=== PATIENT | male | born 1995 ===

== ENCOUNTER 2022-10-16 10:58 | Outpatient (AMB) | payer OTHER, SELFPAY ==
--- NOTE | 2022-10-16 11:00 | A.OFFVIS_ITS ---
Intake Vital Signs 10/16/22 11:07 Height 5 ft 6 in Weight 122 lb BMI 19.7 BP 106/59 L Blood Pressure Location Rt brachial Position Sitting Pulse 56 Intake Visit Reasons: Pilonidal Cyst Intake Note: Patient referred for pilonidal cyst. First noticed @ 13 yrs of age. Had it drained in 2021. C/o pain when sitting on it. Cigar Tobacco Rehandler Required: No Accompanied by: Daughter Allergies No Known Allergies Allergy (Verified 10/16/22 11:05) HPI HPI Comments History of Present Illness Details Patient presents with a longstanding history of a pilonidal cyst of king cleft. He has had pain, discharge, and in the past has had this lanced at least 3 times. He wishes to have it excised. He has no other significant medical or surgical issues. Chart was reviewed and patient evaluated COUNT INCLUDES THE [facility] Medical History (Updated 10/16/22 @ 11:06 by JORDY Saunders) Open right ankle fracture Social History (Updated 10/16/22 @ 11:07 by JORDY Saunders) Alcohol intake: never Tobacco use type: Cigarette Cigarettes Per Day: 3 Physical Exam Vital Signs: Last Vital Signs Pulse 56 10/16/22 11:07 BP 106/59 L 10/16/22 11:07 BMI result Body Mass Index 19.7 Chest Other: Chest breath sounds bilaterally, HS 1 in 2 GI Other: Abdomen soft, benign Back/Spine/Pelvis Other: Pilonidal cyst of cleft area. Scarring from prior incision and drainage. Assessment & Plan Assessment & Plan (1) Pilonidal cyst of king cleft: Code(s): L05.91 - Pilonidal cyst without abscess Plan Risks, benefits, alternatives of pilonidal cyst excision were reviewed with the patient and included but not limited to bleeding, infection, recurrence, numbness, pain, scarring, seroma formation, or wound dehiscence. I specifically discussed that the patient must be sedentary post procedure for few weeks time or he may develop a wound dehiscence. All questions were answered. Patient wished to proceed. Arrangements were made for this. Coding Level of Care Code New Pt Level 4 (72607) Diagnoses Pilonidal cyst of king cleft L05.91
[2022-10-16 11:07] VITALS: BP 106/59; PULSE 56; BMI 19.7
== END 2022-10-16 11:32 | disposition home or self-care (01) ==
PROVIDERS: PCP Internal Medicine; Referring Provider Internal Medicine; Visit Provider Surgery
DX: L05.91 Pilonidal cyst without abscess (principal)
CPT/HCPCS: 99204

== ENCOUNTER → 2022-10-16 10:58 | Outpatient (BNVA) | payer OTHER, SELFPAY | PROVIDERS: PCP Internal Medicine; Referring Provider Internal Medicine; Visit Provider Surgery | DX: L05.91 Pilonidal cyst without abscess (principal) | CPT/HCPCS: 99202 ==

== ENCOUNTER 2022-11-15 09:53 | Day surgery (SDC) | payer OTHER, SELFPAY ==
[2022-11-12 16:13] VITALS: BMI 19.7
--- NOTE | 2022-11-14 09:29 | MHC.SHP ---
Pre-Procedural Eval Section A Date of Service: 11/14/22 The patient is an INPATIENT: No Changes since office visit: No Cold of Flu in the past 2 weeks, No New Medical Problems, No Changes in Medication and No Patient answered all questions The History & Physical has been completed within 30 days and I have reviewed it.: Yes Section B Chief Complaint: Pilonidal cyst without abscess Allergies: Allergies Allergy/AdvReac Type Severity Reaction Status Date / Time No Known Allergies Allergy Verified 10/16/22 11:05 Plan I have reviewed the history and physical and performed a pertinent physical examination on my patient. No changes have occurred unless specified. Time Spent With Patient Time: Total time managing care of this patient today ____ minutes.
[2022-11-15] VITALS (11 sets, daily range): BP systolic 100–120; BP diastolic 38–84; PULSE 38–56; RESP 14–18; TEMP 36.2–36.6; O2SAT 98–100
[2022-11-15] MEDS: Lactated Ringers 1,000 ML 100 ML IVCONT (10:12)
--- NOTE | 2022-11-15 10:55 | HO.ANESPROP2 ---
Documented by User: Teresa Diaz NP 11/14/22 08:56 HPI - Anesthesia Eval Consult details Narrative: 27yo M for Excision Pilonidal Cyst of Cleft,prone position PMFSH Active Problems Active Problems: All Active Problems (Updated 10/16/22 @ 11:34 by Javy Chilel MD) Pilonidal cyst of king cleft (Acute) Past Medical History Medical History Open right ankle fracture Surgical History Surgical History No pertinent past surgical history Social History Social History Alcohol intake: never Patient Tobacco Use Status: Current everyday Tobacco user Tobacco use type: Cigarette Cigarettes Per Day: 3 Smoked in Last 30 Days: Yes Patient Interested in Nicotine Replacement: No Substance Use Frequency: Occasionally Are you DNR?: No Advance Directives: No Advance Directives Information Provided: Yes Nutrition Risks: No Nutritional Risk Meds Allergies Allergy/AdvReac Type Severity Reaction Status Date / Time No Known Allergies Allergy Verified 11/15/22 10:25 Home Medications Medication Instructions Recorded Confirmed Last Taken Type No Known Home Meds 10/16/22 11/15/22 Unknown History Exam Exam Date and Time: November 14, 2022 0856 Height,Weight and Vital Signs: Height 5 ft 6 in Weight 55.338 kg Assessment and Plan Assessment Anesthesia Assessment: Chart Reviewed Documented by User: Blossom Swanson DO 11/15/22 10:58 PMFSH Past Medical History Medical History Open right ankle fracture Functional capacity: independent ambulation Family History Family history of problems with anesthesia: No Surgical History Surgical History No pertinent past surgical history History of Problems with Anesthesia: No Social History Social History Alcohol intake: never Patient Tobacco Use Status: Current everyday Tobacco user Tobacco use type: Cigarette Cigarettes Per Day: 3 Smoked in Last 30 Days: Yes Patient Interested in Nicotine Replacement: No Substance Use Frequency: Occasionally Are you DNR?: No Advance Directives: No Advance Directives Information Provided: Yes Nutrition Risks: No Nutritional Risk Meds Allergies Allergy/AdvReac Type Severity Reaction Status Date / Time No Known Allergies Allergy Verified 11/15/22 10:25 Home Medications Medication Instructions Recorded Confirmed Last Taken Type No Known Home Meds 10/16/22 11/15/22 Unknown History Exam Exam Date and Time: November 15, 2022 1057 Height,Weight and Vital Signs: Height 5 ft 6 in Weight 55.338 kg Vital Signs Temperature 97.9 F 11/15/22 10:25 Pulse Rate 51 11/15/22 10:25 Respiratory Rate 18 11/15/22 10:25 Blood Pressure 113/59 L 11/15/22 10:25 Pulse Oximetry 99 11/15/22 10:25 Oxygen Delivery Method Room Air 11/15/22 10:25 Temperature 97.9 F 11/15/22 10:25 Pulse Rate 51 11/15/22 10:25 Respiratory Rate 18 11/15/22 10:25 Blood Pressure 113/59 L 11/15/22 10:25 Pulse Oximetry 99 11/15/22 10:25 Oxygen Delivery Method Room Air 11/15/22 10:25 Airway Mallampati Class: I TM Dist: >3cm Neck ROM: Full Loose/Missing/Broken Teeth: No Heart: S1S2 Lungs: CTAB Assessment and Plan Assessment Anesthesia Assessment: Anesthesia Plan Discussed and Chart Reviewed Final Anesthetic Review Family History of Problems with Anesthesia: No History of Problems with Anesthesia: No NPO: Yes ASA Class: II Final Preanesthetic Review: No Changes in Pt Med Stat, Meds/Allgs Chart Reviewed, Consent Obtained/Reviewed and Anes Risks/Benef Reviewed Patient Risk: Low Procedure Risk: Low Anesthetic Plan Anesthetic Plan: MAC: and Agree w/ Assess. and Plan Disposition: Standard PACU
--- NOTE | 2022-11-15 12:01 | P.OP_ITS ---
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 Buttock area and cleft area were prepped and draped in usual sterile fashion. Wound was infiltrated with 0.5% Marcaine/1% lidocaine and a longitudinal by elliptical incision extending to the right of midline were the cyst extended, was carried down through skin, subcutaneous tissue, down to presacral fascia, and undermined, excised and sent to pathology using Bovie. Wound was irrigated, secured hemostasis, and closed in the following manner; subcutaneous to wound floor to contralateral subcutaneous interrupted 0 Vicryl were initially placed. Interrupted inverted dermal 3-0 Vicryl sutures followed by vertical mattress 2-0 Prolene were then placed. Sterile dressing was applied. Sponge, needle, and instrument counts reported correct. Patient tolerated procedure well and emerged anesthesia in stable condition. EBL minimal
--- NOTE | 2022-11-15 14:31 | PC.NURSE ---
Cleared by anesthesia for discharge
== END 2022-11-15 14:45 | disposition home or self-care (01) ==
PROVIDERS: PCP Internal Medicine; Visit Provider Surgery
PROC: (CPT 11771; principal; 2022-11-15 11:20)
DX: L05.91 Pilonidal cyst without abscess (principal); F17.210 Nicotine dependence, cigarettes, uncomplicated
CPT/HCPCS: 11771; 88304; J0131; J0690; J1885; J2250; J3010

== ENCOUNTER → 2022-11-15 09:53 | Outpatient (BNV) | payer OTHER, SELFPAY | PROVIDERS: PCP Internal Medicine; Visit Provider Surgery | DX: L05.91 Pilonidal cyst without abscess (principal) | CPT/HCPCS: 11770 ==

== ENCOUNTER 2022-11-25 09:27 | Outpatient (AMB) | payer OTHER, SELFPAY ==
[2022-11-25 09:33] VITALS: BP 110/61; PULSE 64
--- NOTE | 2022-11-25 09:33 | MHC.OFFVIS ---
Intake Vital Signs 11/25/22 09:33 Weight 119 lb BP 110/61 Blood Pressure Location Rt brachial Position Sitting Pulse 64 Intake Visit Reasons: S/P pilonidal cyst Intake Note: Patient here s/p pilonidal cyst excision. Reports healing well and normal BM. Denies bleeding. Patient still taking rx pain meds as needed. Forest Fire Prevention Manager Required: No Accompanied by: Self / Same As Patient Allergies No Known Allergies Allergy (Verified 11/25/22 09:34) HPI HPI Comments History of Present Illness Details Patient presents for follow-up. Aside from mild incisional discomfort is doing well. He has time diet having normal bowel habits. He is increasing his activity level slowly. He has no wound issues. Pathology was reviewed. [facility] Medical History Open right ankle fracture Surgical History No pertinent past surgical history Social History Alcohol intake: never Patient Tobacco Use Status: Current everyday Tobacco user Tobacco use type: Cigarette Cigarettes Per Day: 3 Physical Exam Vital Signs: Last Vital Signs Pulse 64 11/25/22 09:33 BP 110/61 11/25/22 09:33 Back/Spine/Pelvis Other: Pilonidal wound clean dry and intact healing uneventfully. Assessment & Plan Assessment & Plan (1) Pilonidal cyst of king cleft: Code(s): L05.91 - Pilonidal cyst without abscess Plan Patient has been given very specific local instructions, and will see me in approximately 1 weeks time for suture removal. Coding Level of Care Code Global (38096) Diagnoses Pilonidal cyst of cleft L05.91
== END 2022-11-25 09:44 | disposition home or self-care (01) ==
PROVIDERS: PCP Internal Medicine; Visit Provider Surgery
DX: L05.91 Pilonidal cyst without abscess (principal)
CPT/HCPCS: 99024

== ENCOUNTER → 2022-11-25 09:27 | Outpatient (BNVA) | payer OTHER, SELFPAY | PROVIDERS: PCP Internal Medicine; Visit Provider Surgery ==

== ENCOUNTER 2022-12-03 09:29 | Outpatient (AMB) | payer OTHER, SELFPAY ==
[2022-12-03 09:43] VITALS: BP 100/51; PULSE 59
--- NOTE | 2022-12-03 09:43 | MHC.OFFVIS ---
Intake Vital Signs 12/03/22 09:43 Weight 117 lb BP 100/51 L Blood Pressure Location Rt brachial Position Sitting Pulse 59 Intake Visit Reasons: 1 wk follow up pilonidal cyst Intake Note: Patient here 2wks s/p exc pilonidal cyst on king cleft. Reports healing well. Denies bleeding or oozing. C/o itch. No longer taking rx pain meds. Instructional Services Specialist Required: No Accompanied by: Self / Same As Patient Allergies No Known Allergies Allergy (Verified 12/03/22 09:45) HPI HPI Comments History of Present Illness Details Patient presents for follow-up. He has no wound issues or complaints. [facility] Medical History Open right ankle fracture Surgical History No pertinent past surgical history Social History Alcohol intake: never Patient Tobacco Use Status: Current everyday Tobacco user Tobacco use type: Cigarette Cigarettes Per Day: 3 Physical Exam Vital Signs: Last Vital Signs Pulse 59 12/03/22 09:43 BP 100/51 L 12/03/22 09:43 GI Other: Wound is clean dry and intact. Uneventful suture removal. Patient tolerated procedure well. Assessment & Plan Assessment & Plan (1) Pilonidal cyst of cleft: Code(s): L05.91 - Pilonidal cyst without abscess Plan Patient has been given local instructions including avoiding strenuous activities for next 2-3 weeks time. He will follow-up p.r.n.. Coding Level of Care Code Global (04462) Diagnoses Pilonidal cyst of king cleft L05.91
== END 2022-12-03 09:51 | disposition home or self-care (01) ==
PROVIDERS: PCP Internal Medicine; Visit Provider Surgery
DX: L05.91 Pilonidal cyst without abscess (principal)
CPT/HCPCS: 99024

== ENCOUNTER → 2022-12-03 09:29 | Outpatient (BNVA) | payer OTHER, SELFPAY | PROVIDERS: PCP Internal Medicine; Visit Provider Surgery ==